=== PATIENT | male | born 1975 | race Caucasian/White ===

== ENCOUNTER 2021-11-04 20:38 | Outpatient (CLI) | payer OTHER, SELFPAY | END 2021-11-04 20:39 | disposition home or self-care (01) | LOC: AMB 11-14 11:27 | PROVIDERS: PCP Internal Medicine; Visit Provider Family Medicine | DX: S89.92XA Unspecified injury of left lower leg, initial encounter (principal); V49.9XXA Car occupant (driver) (passenger) injured in unspecified traffic accident, initial encounter; Y92.410 Unspecified street and highway as the place of occurrence of the external cause | CPT/HCPCS: A0425; A0427 ==